=== PATIENT | male | born 1975 | race Caucasian/White ===

== ENCOUNTER 2016-06-21 05:01 | Emergency (ER) | payer OTHER ==
[~2016-06-21] VITALS: Ht 167.6 cm; Wt 74.8 kg
--- NOTE | 2016-06-21 05:12 | ER.PDOC ---
General Chief Complaint: Sore Throat Stated Complaint: DIFF SWALLOWING TRAVEL OUT OF US: No Time seen by MD: 05:12 Source: patient History of Present Illness Initial Comments pt was swallowing his tabs and felt they ar stuck at his pharynx and whenever he swallows he feels that nothing can go down Allergies: Coded Allergies: No Known Allergies (Unverified , 06/21/16) Past Medical History Medical History: high cholesterol Surgical History: no surgical history Social History Smoking: non-smoker Alcohol Use: occasionally Drug Use: none Review of Systems Constitutional: see HPI Gastrointestinal: see HPI All Other Systems: Reviewed and Negative Physical Exam General Appearance: No Apparent Distress EENT: nml ENT inspection Neck: Full Range of Motion Respiratory: lungs clear Back: Normal Inspection Extremities: Normal Range of Motion Neurologic/Psychiatric: Alert Skin: Normal Color Departure Time of Disposition: 05:45 Disposition: 01 HOME, SELF-CARE Impression: Primary Impression: Dysphagia Qualified Code: R13.10 - Dysphagia, unspecified Condition: Stable Referrals: UNDEFINED,PHYSICIAN (PCP) PRIMARY CARE PROVIDER JULIO DORAN MD Jun 21, 2016 05:12
--- NOTE | 2016-06-21 05:37 | NUR ---
TO CT/XRAY PATIENT TO CT/XRAY WITH ANGELIKA CARNES
--- NOTE | 2016-06-21 05:47 | NUR ---
BACK FROM CT/XRAY PATIENT BACK FROM CT/XRAY,NO NEEDS VOICED BY PATIENT
--- NOTE | 2016-06-21 06:30 | DIREP ---
PROCEDURE:CHEST 2 VIEWS COMPARISON:None. INDICATIONS:FB (PILL) IN THE CHEST FINDINGS: LUNGS/PLEURA:No significant pulmonary parenchymal abnormalities. No effusions. CARDIAC:Normal. No cardiac silhouette abnormality or cardiomegaly. MEDIASTINUM:Normal. No visible mass or adenopathy. BONES:Normal. No fracture or visible bony lesion. OTHER:No foreign body detected CONCLUSION:Clear chest. No foreign body detected Dictated by: Rodolfo Lazaro MD on 06/21/2016 at 06:28 AM
--- NOTE | 2016-06-21 06:33 | DIREP ---
PROCEDURE:CT SOFT TISSUE NECK W/O COMPARISON:None. INDICATIONS:FB IN THE NECK TECHNIQUE:CT images were created without intravenous contrast material. Sagittal and coronal reconstructions are performed. FINDINGS: NASOPHARYNX:Normal. Fossae of Rosenmuller and torus tubarius are symmetric. ORAL CAVITY:Normal. No visible mass. OROPHARYNX:Normal. Faucial and lingual tonsils are symmetric. HYPOPHARYNX:Normal. No mass or other visible lesion. LARYNX:Normal. The vocal cords are symmetric and without mass. SINUSES:Normal. Limited views show no significant fluid or mucosal thickening. NECK GLANDS:Normal. The parotid, submandibular, and thyroid glands are unremarkable. LYMPH NODES:Normal. No pathological-appearing or enlarged lymph nodes. SKULL BASE:Normal. Foramina are symmetric without bony erosion. VASCULATURE:Normal. Limited views are unremarkable. BONES:Normal. No significant osseous lesions. OTHER:No foreign body detected; fluid-filled esophagus in the upper mediastinum. CONCLUSION:No lesions. No foreign body. Dictated by: Rodolfo Lazaro MD on 06/21/2016 at 06:29 AM
== END 2016-06-21 06:56 | disposition home or self-care (01) ==
LOC: ER 05:01
DX: R13.10 Dysphagia, unspecified (principal); E78.00 Pure hypercholesterolemia, unspecified
CPT/HCPCS: 70490; 71020; 99284